=== PATIENT | female | born 1990 | race Caucasian/White ===

== ENCOUNTER 2017-07-22 09:26 | Emergency (ER) | payer OTHER ==
[2017-07-22 09:43] VITALS: BP 118/73
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
[2017-07-22 22:14] LABS: CANNABINOIDS NEGATIVE ng/mL (< 50); METHYLENEDIOXYMETHAMPHETAMINE NEGATIVE ng/mL (<500)
[2017-07-22 22:15] LABS: APPEARANCE,URINE CLOUDY (CLEAR); COLOR,URINE YELLOW (YELLOW); OCCULT BLOOD,URINE NEGATIVE (NEGATIVE); UROBILINOGEN URINE 0.2 Eu (0.2-1.0)
== END 2017-07-22 10:55 | disposition home or self-care (01) ==
LOC: ED 09:26 → EDBD 09:26 → ED 10:55
DX: F41.9 Anxiety disorder, unspecified (principal); Z86.69 Personal history of other diseases of the nervous system and sense organs; Z76.0 Encounter for issue of repeat prescription
CPT/HCPCS: 80377; 81002; 99283; G0481